=== PATIENT | male | born 1975 | race Caucasian/White ===

== ENCOUNTER 2017-04-26 10:08 | Emergency (ER) | payer SELFPAY ==
[2017-04-26] MEDS ORDERED: NAPROXEN 250 MG TABLET PO ONE (10:28)
--- NOTE | 2017-04-26 10:32 | Emergency Department Record ---
History of Present Illness - General Chief Complaint: Back Pain/Injury Stated Complaint: LOW BACK PAIN Time Seen by Provider: 04/26/17 10:21 Source: Patient Mode of Arrival: Ambulatory Limitations: No limitations - History of Present Illness Initial Comments: The patient is here due to complaints of back pain and running out of his chronic pain medicines. He states he fractured his back 10 days ago after a fall and was discharged from [facility] with a clam shell brace and Tramadol and Percocet for pain. The patient states he has an appointment in 5 days with his Neurosurgeon and was told to come to the ER for pain medicines. He denies any new issues or problems and has no leg weakness, numbness, or any bowel or bladder issues. MD Complaint: Back pain Onset/Timin -: Days(s) Similar Symptoms Previously: Yes Place: Home Radiation: Left leg Severity scale (1-10): 7 Quality: Sharp Consistency: Constant Improves With: Immobilization Worsens With: Sitting upright, Walking Context: Fall Associated Symptoms: Numbness - Related Data Allergies Allergy/AdvReac Type Severity Reaction Status Date / Time Latex, Natural Rubber Allergy HIVES Verified 04/26/17 10:19 Penicillins Allergy PT UNSURE Verified 04/26/17 10:19 OF REACTION ketorolac [From Toradol] AdvReac HYPERSENSIT Verified 04/26/17 10:19 IVITY Travel Screening - Travel/Exposure Within Last 30 Days Have you traveled within the last 30 days?: No - Travel/Exposure Within Last Year Have you traveled outside the [place] in the last year?: No - Additonal Travel Details Have you been exposed to anyone with a communicable illness?: No - Travel Symptoms Symptom Screening: None Review of Systems Constitutional: Denies: Chills, Fever Eyes: Denies: Eye discharge ENT: Denies: Congestion Respiratory: Denies: Cough Past Medical History - SOCIAL HISTORY Smoking Status: Former smoker Alcohol Use: Rare Drug Use: None - RESPIRATORY Hx Respiratory Disorders: No - CARDIOVASCULAR Hx Cardio Disorders: No - NEURO Hx Neuro Disorders: No - GI Hx GI Disorders: No - Hx Genitourinary Disorders: No - ENDOCRINE Hx Endocrine Disorders: No - MUSCULOSKELETAL Hx Musculoskeletal Disorders: Yes - PSYCH Hx Psych Problems: No - HEMATOLOGY/ONCOLOGY Hx Hematology/Oncology Disorders: No Family Medical History Any Significant Family History?: No Physical Exam - General General Appearance: Alert, Oriented x3, Cooperative, No acute distress - Head Head exam: Atraumatic, Normocephalic, Normal inspection - Eye Eye exam: Normal appearance, PERRL - Neck Neck exam: Normal inspection, Full ROM. negative: Tenderness - Respiratory Respiratory exam: Normal lung sounds bilaterally. negative: Respiratory distress - Cardiovascular Cardiovascular Exam: Regular rate, Normal rhythm, Normal heart sounds - Extremities Extremities exam: Normal inspection, Full ROM, Normal capillary refill. negative: Tenderness - Back Back exam: Reports: Normal inspection, Full ROM, Vertebral tenderness (L3-5). Denies: Muscle spasm, Rash noted, Tenderness - Neurological Neurological exam: Alert, Normal gait, Reflexes normal. negative: Abnormal gait , Motor sensory deficit Course Vital Signs 04/26/17 10:10 Temperature 98.1 F Pulse Rate 85 Respiratory 18 Rate Blood Pressure 155/113 Pulse Ox 98 - Reevaluation(s) Reevaluation #1: After asking the patient about his multiple pain prescriptions over the last year he got up and walked out of the ED. He would not stop to sign any AMA papers. 04/26/17 10:36 Disposition Disposition: Discharge Clinical Impression: Chronic low back pain Qualifiers: Back pain laterality: unspecified Sciatica presence: unspecified whether sciatica present Qualified Code(s): M54.5 - Low back pain Condition: (2) Stable Instructions: Low Back Strain (ED) Forms: Patient Portal Access Time of Disposition: 10:36 Quality - Quality Measures Quality Measures: N/A - Blood Pressure Screening View Details: Yes Does Patient Have Any of the Following: No Blood Pressure Classification: Hypertensive Reading Systolic Measurement: 155 Diastolic Measurement: 113 Screening for High Blood Pressure: < Pre-Hypertensive BP, F/U Documented > [ [id number]] Pre-Hypertensive Follow-up Interventions: Referral to alternative/primary care provider.
== END 2017-04-26 10:30 | disposition left against medical advice (07) ==
LOC: ER 10:08
DX: G89.21 Chronic pain due to trauma (principal); M54.5 Low back pain
CPT/HCPCS: 99282